=== PATIENT | male | born 1975 | race Caucasian/White ===

== ENCOUNTER 2016-08-29 08:12 | Observation (INO) | payer BC ==
[2016-08-29] MEDS ORDERED: ALBUTEROL 0.083% 2.5 MG/3 ML VIAL.NEB INHALATION ONE (08:35)
[2016-08-29] MEDS ORDERED: TUSSIONEX PENNKINETIC SUSP 5 ML UDC PO SCH ×2 (09:00→21:00)
[2016-08-29] MEDS ORDERED: ACETAMINOPHEN 325 MG TABLET PO ONE (09:20)
[2016-08-29 09:32] LABS: BLOOD UREA NITROGEN 14 mg/dL (9-20); CALCIUM 9.6 mg/dL (8.4-10.2); CHLORIDE 100 mmol/L (98-107); CREATININE 1.3 mg/dL (0.7-1.3); EST GLOMERULAR FILTRATION RATE > 60 mL/min; GLUCOSE 123 mg/dL (70-100); POTASSIUM 4.3 mmol/L (3.5-5.1); SODIUM 136 mmol/L (137-145)
[2016-08-29 09:33] LABS: INFLUENZA A/B INF A & B NEGATIVE; RAPID STREP SCRN CUL IF NEG NEGATIVE
[2016-08-29 09:35] LABS: HEMOGLOBIN 15.6 g/dL (14.0-18.0); LYMPHOCYTES 13.7 % (20.0-40.0); MEAN CELL VOLUME 86.5 fL (80.0-100.0); MEAN CORPUS. HGB CONCENTRATION 35.6 g/dL (32.0-36.0); MEAN CORPUSCULAR HEMOGLOBIN 30.7 pg (29.0-35.0); MEAN PLATELET VOLUME 8.7 fL (7.4-10.4); MONOCYTES 6.6 % (2.0-10.0); MONOCYTES# 0.5 X 10^3uL (0.2-1.0); NEUTROPHILS 79.7 % (54.0-75.0); NEUTROPHILS# 5.4 X 10^3uL (2.6-6.7); PLATELET COUNT 128 X 10^3uL (130-440); RED BLOOD COUNT 5.08 X 10^6uL (4.20-6.10); RED CELL DISTRIBUTION WIDTH 12.3 % (11.5-14.5); WHITE BLOOD COUNT 6.9 X 10^3uL (3.9-10.7)
[2016-08-29 09:41] LABS: URINE RBC NONE SEEN (0-5/hpf)
[2016-08-29 09:49] LABS: URINE APPEARANCE CLEAR; URINE COLOR YELLOW
[2016-08-29 09:50] LABS: URINE AMORPHOUS SEDIMENT UP TO 25%/lpf (Up to 25%); URINE BACTERIA <10 ORGANISMS/hpf (<10/hpf); URINE BILIRUBIN NEGATIVE (NEGATIVE); URINE BLOOD NEGATIVE (NEGATIVE); URINE GLUCOSE NORMAL (NEGATIVE); URINE KETONE 10mg/dL (1+) (NEGATIVE); URINE LEUKOCYTE ESTERASE NEGATIVE (NEGATIVE); URINE MUCUS UP TO 25%/lpf (Up to 25%); URINE NITRITE NEGATIVE (NEGATIVE); URINE PH 5.5 (5-7); URINE PROTEIN 30mg/dL (1+) (NEG - TRACE); URINE SQUAMOUS EPITHELIAL CELL 0-5/hpf (<= 15/hpf); URINE UROBILINOGEN 0.2mg/dL (Normal) (NEG-1mg/dL); URINE WBC 0-4/hpf (0-4/hpf)
[2016-08-29] MEDS ORDERED: METHYLPREDNISOLONE SOD 125 MG/2 ML VIAL ONE (10:05)
[2016-08-29] MEDS ORDERED: IPRATROPIUM/ALBUTEROL 0.5/3 MG 3 ML AMPUL.NEB INHALATION ONE ×2 (10:06→12:47)
[2016-08-29] MEDS ORDERED: HOME MEDICATION LIST NEEDED 1 EA EACH MC ONE (10:11)
[2016-08-29] MEDS ORDERED: FAMOTIDINE 20 MG TABLET PO PRN (10:11)
[2016-08-29] MEDS ORDERED: ACETAMINOPHEN 325 MG TABLET PO PRN (10:11)
[2016-08-29] MEDS ORDERED: NORMAL SALINE 1,000 ML IV SCH (11:00)
--- NOTE | 2016-08-29 11:25 | RADIOLOGY REPORT ---
A limited single portable view of the chest, without prior films for comparison , demonstrates the heart and vessels to be unremarkable. Stringy atelectasis and/or scarring is seen in the right mid lung field and left lung base. The lung shearer are otherwise clear. No infiltrate, fluid or pneumothorax is seen. IMPRESSION: Minimal stringy atelectasis and/or scarring in the right mid lung field and left lung base. MTDD
--- NOTE | 2016-08-29 11:26 | ER PHYSICIAN DOCUMENTATION ---
Physician Documentation [facility] Name:Douglas Santamaria Age:40 yrs Sex:Male :1975 Arrival Date:08/29/2016 Time:08:12 Bed4 Private MD: Liang Whitten Disposition: 08/29/16 10:02 Admit ordered for Ney Aguilar. Preliminary diagnosis are Hypoxia, Bronchitis Acute. - Bed requested for Medical/Surgical. - Condition is Fair. - Problem is new. - Symptoms are unchanged. 23 HR OBS Yes HPI: 08/29 09:56 This 40 yrs old Male presents to ER via Walk In with complaints of Possible sc Kidney Stone, Cough. 09:56 The patient or guardian reports cough, that is constant, with no sputum. Onset: The sc symptom(s)/episode began/occurred 3 day(s) ago. Severity of symptoms: At their worst the symptoms were severe, in the emergency department the symptoms have improved. Modifying factors: The symptoms are alleviated by nothing. Associated signs and symptoms: Pertinent positives: earache, fever, rhinorrhea, sore throat. children in home with similar symptoms last week. Historical: - Allergies: PENICILLINS; - Home Meds: 1. lisinopril 10 mg oral tab 1 tab once daily for Hypertension 2. Mucinex 600 mg oral TbER 1 tab as needed for Cough - PMHx: KIDNEY STONES; HYPERTENSION; - PSHx: SHOULDER SURGERY; LITHOTRIPSY; URETERAL STENTS; - Tetanus: < 10 years. - Ebola Screening: : Patient negative for fever greater than or equal to 101.5 degrees Fahrenheit, and additional compatible Ebola Virus Disease symptoms. Patient denies exposure to infectious person. Patient denies travel to an Ebola-affected area in the 21 days before illness onset. . - Immunization history: Flu Vaccine None. - Social history: Smoking status: Patient states former smoker of tobacco. ROS: 09:58 Eyes: Negative for injury, pain, redness, and discharge. sc Neck: Negative for injury, pain, and swelling. Cardiovascular: Negative for chest pain, palpitations, and edema. Abdomen/GI: Negative for abdominal pain, nausea, vomiting, diarrhea, and constipation. Back: Negative for injury and pain. MS/Extremity: Negative for injury and deformity. Skin: Negative for injury, rash, and discoloration. 09:58 Neuro: Negative for headache, weakness, numbness, tingling, and seizure. sc 09:58 Constitutional: Positive for body aches, chills, fatigue, fever, malaise. 09:58 ENT: Positive for ear pain, sinus congestion, sore throat. 09:58 Respiratory: Positive for cough, with no reported sputum, dyspnea on exertion, shortness of breath, wheezing. Exam: Head/Face: Normocephalic, atraumatic. Eyes: Pupils equal round and reactive to light, extra-ocular motions intact. Lids and lashes normal. Conjunctiva and sclera are non-icteric and not injected. Cornea within normal limits. Periorbital areas with no swelling, redness, or edema. ENT: Nares patent. No nasal discharge, no septal abnormalities noted. Tympanic membranes are normal and external auditory canals are clear. Oropharynx with no redness, swelling, or masses, exudates, or evidence of obstruction, uvula midline. Mucous membranes moist. Neck: Trachea midline, no thyromegaly or masses palpated, and no cervical lymphadenopathy. Supple, full range of motion without nuchal rigidity, or vertebral point tenderness. No meningismus. Chest/axilla: Normal chest wall appearance and motion. Nontender with no deformity. No lesions are appreciated. Cardiovascular: Regular rate and rhythm with a normal S1 and S2. No gallops, murmurs, or rubs. Normal PMI, no JVD. No pulse deficits. Abdomen/GI: Soft, non-tender, with normal bowel sounds. No distension or tympany. No guarding or rebound. No evidence of tenderness throughout. Back: No spinal tenderness. No costovertebral tenderness. Full range of motion. Skin: Warm, dry with normal turgor. Normal color with no rashes, no lesions, and no evidence of cellulitis. 09:59 Neuro: Awake and alert, GCS 15, oriented to person, place, time, and situation. hi Cranial nerves II-XII grossly intact. Motor strength 5/5 in all extremities. Sensory grossly intact. Cerebellar exam normal. Normal gait. 09:59 Constitutional: The patient appears alert, awake, lethargic. 09:59 Respiratory: mild respiratory distress is noted, Respirations: tachypnea, that is mild, Breath sounds: wheezing, that is mild, is heard diffusely. 10:03 Neuro: Orientation: is normal. hi Vital Signs: 08:30 BP 141 / 87; Pulse 102; Resp 20; Temp 99.6(O); Pulse Ox 82% on R/A; Weight 95.71 kg; lp Height 5 ft. 11 in. (180.34 cm); 09:14 BP 131 / 89; Pulse 108; Resp 20; Pulse Ox 93% on 2 lpm NC; lp 10:33 BP 106 / 70; Pulse 106; Resp 20; Pulse Ox 90% on 2 lpm NC; lp 08:30 Body Mass Index 29.43 (95.71 kg, 180.34 cm) lp MDM: 08:57 Patient medically screened. hi 10:01 Differential Diagnosis: Bronchitis Influenza Upper Respiratory Infection Pharyngitis sc Viral Syndrome. Data reviewed: vital signs, nurses notes, lab test result(s), radiologic studies, and as a result, I will admit patient. Counseling: I had a detailed discussion with the patient and/or guardian regarding: the historical points, exam findings, and any diagnostic results supporting the discharge/admit diagnosis, lab results, radiology results, the need for further work-up and treatment in the hospital. 08/29 09:33 Order name: BASIC METABOLIC PANEL; Complete Time: 09:47 EDMS 08/29 09:46 Interpretation: Normal. hi 08/29 09:34 Order name: INFLUENZA A/B; Complete Time: 09:47 EDMS 08/29 09:46 Interpretation: Normal. hi 08/29 09:34 Order name: RAPID STREP SCRN CUL IF NEG; Complete Time: 09:47 EDWY 08/29 09:47 Interpretation: Normal. hi 08/29 09:36 Order name: CBC AUTO DIF, MDIF/RMOR IF IND; Complete Time: 09:47 EDWY 08/29 09:47 Interpretation: Normal. hi 08/29 09:51 Order name: UA W/ MICRO -CULTURE IF IND; Complete Time: 10:02 EDWY 08/29 10:02 Interpretation: Normal Except: URINE PROTEIN 30mg/dL (1+); URINE KETONE 10mg/dL (1+). hi 08/29 08:36 Order name: I & O; Complete Time: 09:08 08/29 08:36 Order name: Oxygen; Complete Time: 09:08 08/29 08:36 Order name: Place Patient On Monitor; Complete Time: : lp 08/29 08:36 Order name: Pulse Ox Continuous; Complete Time: : lp 08/29 08:57 Order name: Urine Dip; Complete Time: : sc Dispensed Medications: 08:45 Drug: Albuterol 2.5 mg; Route: Inhalation; lp 09:45 Follow up: Response: Wheezing unchanged lp 09:15 Drug: Tylenol 975 mg; Route: PO; lp 10:15 Follow up: Response: Pain is decreased lp 10:07 Drug: Solu-MEDROL 125 mg; Route: IVP; Site: left antecubital; lp 10:28 Follow up: Response: No adverse reaction; No change in condition lp 10:07 Drug: DuoNeb (Albuterol 2.5 mg, Atrovent 0.5 mg); 3 ml; Route: Nebulizer; lp 10:29 Follow up: Response: No adverse reaction; Marked relief of symptoms lp 10:24 Drug: Tussionex - HYDROcodone-Homatropine Liquid 5ml 5 ml; Route: PO; lp 10:40 Follow up: Response: No adverse reaction; No change in condition lp Point of Care Testing: Urine Dip: : pH: 5.5; ; Specific [place]: 1.020; Ketones: Small; Glucose: Negative; Protein: lp Positive (+); Leukocytes: Negative; Nitrite: Negative ; Blood: Negative; Bilirubin: Negative ; Urobilinogen: Normal Signatures: Emma Mir RN RN Liang Brower MD MD hi
--- NOTE | 2016-08-29 11:26 | ER NURSING DOCUMENTATION ---
Nurse's Notes [facility] Name:Douglas Santamaria Age:40 yrs Sex:Male :1975 Arrival Date:08/29/2016 Time:08:12 Bed4 Private MD: Diagnosis:Hypoxia;Bronchitis Acute Presentation: 08/29 08:15 Acuity: KRISTOPHER 3 rh 08:29 Presenting complaint: Patient states: Cough and SOB since Friday. Transition of care: lp Home. 08:29 Method Of Arrival: Walk In lp Triage Assessment: 09:08 General: Appears uncomfortable, Behavior is appropriate for age. Pain: Complains of lp pain in forehead, right synagogue and left synagogue. EENT: Tympanic membrane reddened on left ear and right ear Nares with drainage noted Throat is reddened has enlarged tonsils on left. Neuro: Level of Consciousness is awake, alert, Oriented to person, place, time, event, [place] are equal bilaterally Moves all extremities. Speech is normal. Cardiovascular: Heart tones S1 S2. Respiratory: Airway is patent Respiratory effort is even, unlabored, Respiratory pattern is regular, symmetrical, Breath sounds are diminished bilaterally. Reports shortness of breath cough that is productive, hacking, persistent pain with cough Onset: The symptoms/episode began/occurred Since Friday. GI: Abdomen is flat, non- distended Bowel sounds present X 4 quads. : Reports pain in bilateral flank(s). Derm: Skin is intact, is healthy with good turgor, Skin is pink, warm & dry. Skin temperature is warm. Musculoskeletal: No deficits noted. Historical: - Allergies: PENICILLINS; - Home Meds: 1. lisinopril 10 mg oral tab 1 tab once daily for Hypertension 2. Mucinex 600 mg oral TbER 1 tab as needed for Cough - PMHx: KIDNEY STONES; HYPERTENSION; - PSHx: SHOULDER SURGERY; LITHOTRIPSY; URETERAL STENTS; - Tetanus: < 10 years. - Ebola Screening: : Patient negative for fever greater than or equal to 101.5 degrees Fahrenheit, and additional compatible Ebola Virus Disease symptoms. Patient denies exposure to infectious person. Patient denies travel to an Ebola-affected area in the 21 days before illness onset. . - Immunization history: Flu Vaccine None. - Social history: Smoking status: Patient states former smoker of tobacco. Screenin:14 Infectious Disease Risk None. Abuse screen: Denies threats or abuse. Denies injuries lp from another. Nutritional screening: No deficits noted. Assessment: 09:13 See Triage Assessment done by same RN. Cardiovascular: Heart tones S1 S2. lp Cardiovascular: Heart tones S1 S2. Respiratory: Airway is patent Respiratory effort is even, unlabored, Respiratory pattern is regular, symmetrical, Reports cough that is productive, hacking, persistent pain with cough. 10:35 Cardiovascular: Rhythm is sinus tachycardia. lp Vital Signs: 08:30 BP 141 / 87; Pulse 102; Resp 20; Temp 99.6(O); Pulse Ox 82% on R/A; Weight 95.71 kg; lp Height 5 ft. 11 in. (180.34 cm); 09:14 BP 131 / 89; Pulse 108; Resp 20; Pulse Ox 93% on 2 lpm NC; lp 10:33 BP 106 / 70; Pulse 106; Resp 20; Pulse Ox 90% on 2 lpm NC; lp 08:30 Body Mass Index 29.43 (95.71 kg, 180.34 cm) lp Vitals: 09:55 Peak flow readin liters/min. lp 10:30 Peak flow readin liters/min. lp ED Course: 08:13 Patient arrived in ED. lm3 08:15 Triage completed. rh 08:29 Emma Mir, AVI is Primary Nurse. lp 08:30 Inserted peripheral IV: 20 gauge in left antecubital area. lp 08:40 Liang Brower MD is Attending Physician. sc 08:46 Port Xray Completed. hz 08:55 court monitor on. Pulse ox on. NIBP on. lp 09:14 Valuables Remains with patient Patient has correct armband on for positive lp identification. Placed in gown. Bed in low position. Call light in reach. Side rails up X 1. 10:01 Ney Aguilar MD is Admitting Physician. sc 10:31 Peak flow 275 prior to duoneb. Peak flow after Duoneb 325. lp Administered Medications: 08:45 Drug: Albuterol 2.5 mg; Route: Inhalation; lp 09:45 Follow up: Response: Wheezing unchanged lp 09:15 Drug: Tylenol 975 mg; Route: PO; lp 10:15 Follow up: Response: Pain is decreased lp 10:07 Drug: Solu-MEDROL 125 mg; Route: IVP; Site: left antecubital; lp 10:28 Follow up: Response: No adverse reaction; No change in condition lp 10:07 Drug: DuoNeb (Albuterol 2.5 mg, Atrovent 0.5 mg); 3 ml; Route: Nebulizer; lp 10:29 Follow up: Response: No adverse reaction; Marked relief of symptoms lp 10:24 Drug: Tussionex - HYDROcodone-Homatropine Liquid 5ml 5 ml; Route: PO; lp 10:40 Follow up: Response: No adverse reaction; No change in condition lp Point of Care Testing: Urine Dip: 09:29 pH: 5.5; ; Specific [place]: 1.020; Ketones: Small; Glucose: Negative; Protein: lp Positive (+); Leukocytes: Negative; Nitrite: Negative ; Blood: Negative; Bilirubin: Negative ; Urobilinogen: Normal Outcome: 10:02 Decision to Admit by Provider. mo 10:32 Condition: stable lp 10:32 Instructed on need to admit 11:24 Admitted to Med/surg accompanied by nurse. lp 11:25 Patient left the ED. lp Signatures: Emma Mir RN RN Liang Burgess MD MD mo Tonya Tanner Sherice Santos Magy Couch [facility]
[2016-08-29] MEDS ORDERED: [UNRECOGNIZED DRUG - OTHER] IM ONE ×2 (12:16→13:28)
[2016-08-29] MEDS ORDERED: AZITHROMYCIN 250 MG TABLET PO SCH (12:30)
[2016-08-29] MEDS ORDERED: O2 HUMIDIFIER 650 ML BOTTLE INHALATION ONE (12:32)
[2016-08-29] MEDS ORDERED: NORMAL SALINE IV SCH (13:00)
[2016-08-29] MEDS ORDERED: SODIUM BICARB IV SCH ×2 (13:00→14:00)
[2016-08-29] MEDS ORDERED: SODIUM CHLORIDE 0.45 % 1,000 ML IV SCH (13:00)
[2016-08-29] MEDS: OSELTAMIVIR PHOSPHATE 75 MG CAPSULE PO SCH ×2 (13:20→21:58)
[2016-08-29] MEDS: GUAIFENESIN ER 600 MG TABLET PO SCH ×2 (13:22→21:58)
[2016-08-29] MEDS ORDERED: SODIUM CHLORIDE 0.45% IV SCH (14:00)
[2016-08-29] MEDS ORDERED: TUSSIONEX PENNKINETIC SUSP 5 ML UDC ONE (16:02)
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
[2016-08-29] MEDS: IPRATROPIUM/ALBUTEROL 0.5/3 MG 3 ML AMPUL.NEB INHALATION SCH ×2 (16:22→21:56)
[2016-08-29] MEDS: METHYLPREDNISOLONE SOD 125 MG/2 ML VIAL IV SCH ×2 (16:28→21:56)
[2016-08-29] MEDS: TUSSIONEX PENNKINETIC SUSP 5 ML UDC PO SCH (16:29)
[2016-08-29 17:19] VITALS: RESP 20; O2SAT 90
[2016-08-29] MEDS ORDERED: ENALAPRILAT DIHYDRATE 1.25 MG/ML VIAL IV PRN (19:31)
[2016-08-29] MEDS: LISINOPRIL 10 MG TABLET PO SCH (19:31)
[2016-08-29] MEDS ORDERED: ROSUVASTATIN CALCIUM 20 MG TABLET PO SCH (21:00)
[2016-08-29] MEDS: BENZOCAINE/MENTHOL 1 EACH LOZENGE PO PRN (21:58)
[2016-08-30 00:53] VITALS: BP 140/80; TEMP 98.2
[2016-08-30 03:02] VITALS: PULSE 71
[2016-08-30] MEDS: METHYLPREDNISOLONE SOD 125 MG/2 ML VIAL IV SCH ×2 (03:15→10:09)
[2016-08-30] MEDS: IPRATROPIUM/ALBUTEROL 0.5/3 MG 3 ML AMPUL.NEB INHALATION SCH ×2 (03:15→10:26)
[2016-08-30] MEDS: TUSSIONEX PENNKINETIC SUSP 5 ML UDC PO SCH (06:09)
--- NOTE | 2016-08-30 08:29 | PROGRESS NOTE: IM APSO ---
Assessment and Plan - Date of Encounter Date of Encounter: 08/30/16 (1) Hypoxia Status: Acute Assessment and plan: likely bronchiolitis related with RAD/clinical finding, steroids/inhalers, and azithromycin/tamiflu (influenza eia negative but clinical picture consistent) Current Visit: Yes (2) Reactive airway disease with acute exacerbation Status: Acute Assessment and plan: related to infection, will DC, heading to lower elevation Current Visit: Yes (3) Recurrent nephrolithiasis Status: Chronic Assessment and plan: suspect uric acid, elevated serum uric acid, urine uric acid/creatinine pending. Shoudl have 24 hour urine studies in future and consider nephrology referral. May benefit from citrate and uloric as well recommend changing lisinopril which provokes gout to losartan that is a uricosolytic Current Visit: Yes (4) Hypertension Status: Chronic Current Visit: Yes (5) Dyslipidemia Status: Acute Current Visit: Yes (6) Gout Status: Suspected Current Visit: Yes - Time Spent With Patient Total time spent with greater than 50% in coordination of care (as documented) at patient's floor/unit and/or counseling patient: Greater than 35 minutes IM: PN Subjective General: good appetite, no fatigue, no confusion, no pain, no fever, no chills Cardiovascular: no chest pain, no chest pressure, no palpitations Respiratory: cough (more loose, no PND/orthopnea, slept well w/ tussionex) Gastrointestinal: no abdominal pain, no nausea, no vomiting Musculoskeletal: no pain (He feels much better, notes oxygen drops a bit but is driving (girlfriend is driving) them back to [facility] today. He will hot die picker meds at [facility] in [facility]) IM: PN Objective Exam - I&O/Vital Signs I&O: Intake & Output 08/29/16 08/30/16 08/30/16 21:59 05:59 13:59 Intake Total 1514 2000 Output Total 1275 1500 Balance 239 500 Weight 97.522 kg 97.522 kg Intake: IV 664 1500 Left Hand 664 1500 Oral 850 500 Output: Urine 1275 1500 Other: Urine Appearance Clear Clear Urine Color Yellow Yellow Voiding Method Urinal Urinal Vital Signs: Last Vital Signs Temp 36.8 C 08/30/16 03:00 Pulse 71 08/30/16 03:00 Resp 20 08/30/16 03:00 BP 140/80 08/29/16 23:00 Pulse Ox 90 08/30/16 03:00 Oxygen Flow Rate 2 Oxygen Delivery Method Nasal Cannula - Constitutional General appearance: Present: obese - Head Head exam: Present: atraumatic - Eye Eye exam: Present: EOMI. Absent: conjunctival injection - ENT ENT exam: Present: mucous membranes moist - Neck Neck exam: Present: full ROM. Absent: lymphadenopathy - Respiratory Respiratory exam: Present: rhonchi, wheezes (air movement markedly improved, exp phase improved, ronchi at bases w/ polyphonic wheezes). Absent: accessory muscle use - Cardiovascular Cardiovascular exam: Present: RRR - GI/Abdominal GI/Abdominal exam: Present: normal bowel sounds, soft. Absent: tenderness - Extremities Exam Extremities exam: Absent: calf tenderness, edema - Allied Health Notes Allied health notes reviewed: nursing - Lab Labs: Laboratory Last Values WBC 6.9 X 10^3uL (3.9-10.7) 08/29/16 09:10 RBC 5.08 X 10^6uL (4.20-6.10) 08/29/16 09:10 Hgb 15.6 g/dL (14.0-18.0) 08/29/16 09:10 Hct 44.0 % (42.0-54.0) 08/29/16 09:10 MCV 86.5 fL (80.0-100.0) 08/29/16 09:10 MCH 30.7 pg (29.0-35.0) 08/29/16 09:10 MCHC 35.6 g/dL (32.0-36.0) 08/29/16 09:10 RDW 12.3 % (11.5-14.5) 08/29/16 09:10 Plt Count 128 X 10^3uL (130-440) L 08/29/16 09:10 MPV 8.7 fL (7.4-10.4) 08/29/16 09:10 Neutrophils % 79.7 % (54.0-75.0) H 08/29/16 09:10 Lymphocytes % 13.7 % (20.0-40.0) L 08/29/16 09:10 Eosinophils % 0.0 % (0.0-6.0) 08/29/16 09:10 Basophils % 0.0 % (0.0-2.0) 08/29/16 09:10 Neutrophils # 5.4 X 10^3uL (2.6-6.7) 08/29/16 09:10 Lymphocytes # 1.0 X 10^3uL (0.8-3.8) 08/29/16 09:10 Monocytes 6.6 % (2.0-10.0) 08/29/16 09:10 Monocytes # 0.5 X 10^3uL (0.2-1.0) 08/29/16 09:10 Eosinophils # 0.0 X 10^3uL (0.0-0.4) 08/29/16 09:10 Basophils # 0.0 X 10^3uL (0.0-0.1) 08/29/16 09:10 Sodium 136 mmol/L (137-145) L 08/29/16 09:10 Potassium 4.3 mmol/L (3.5-5.1) 08/29/16 09:10 Chloride 100 mmol/L (98-107) 08/29/16 09:10 Carbon Dioxide 25 mmol/L (22-30) 08/29/16 09:10 BUN 14 mg/dL (9-20) 08/29/16 09:10 Creatinine 1.3 mg/dL (0.7-1.3) 08/29/16 09:10 GFR Calculation > 60 mL/min 08/29/16 09:10 Glucose 123 mg/dL (70-100) H 08/29/16 09:10 Uric Acid 6.7 mg/dL (3.5-8.5) 08/29/16 12:14 Calcium 9.6 mg/dL (8.4-10.2) 08/29/16 09:10 Urine Color Yellow 08/29/16 09:35 Urine Appearance Clear 08/29/16 09:35 Urine pH 5.5 (5-7) 08/29/16 09:35 Ur Specific [place] 1.020 (0.001-1.035) 08/29/16 09:35 Urine Protein 30mg/dl (1+) (NEG - TRACE) A 08/29/16 09:35 Urine Ketones 10mg/dl (1+) (NEGATIVE) A 08/29/16 09:35 Urine Blood Negative (NEGATIVE) 08/29/16 09:35 Urine Nitrate Negative (NEGATIVE) 08/29/16 09:35 Urine Bilirubin Negative (NEGATIVE) 08/29/16 09:35 Urine Urobilinogen 0.2mg/dl (normal) (NEG-1mg/dL) 08/29/16 09:35 Ur Leukocyte Esterase Negative (NEGATIVE) 08/29/16 09:35 Urine RBC None seen (0-5/hpf) 08/29/16 09:35 Urine WBC 0-4/hpf (0-4/hpf) 08/29/16 09:35 Ur Squamous Epith Cells 0-5/hpf (<= 15/hpf) 08/29/16 09:35 Amorphous Sediment Up to 25%/lpf (Up to 25%) 08/29/16 09:35 Urine Bacteria <10 organisms/hpf (<10/hpf) 08/29/16 09:35 Urine Mucus Up to 25%/lpf (Up to 25%) 08/29/16 09:35 Urine Creatinine 71.1 mg/dL 08/29/16 12:14 Ur Uric Acid 24 Hr Cancelled 08/29/16 12:14 Urine Glucose Normal (NEGATIVE) 08/29/16 09:35 Influenza Types A,B Ag Inf a & b negative 08/29/16 09:10 Group A Strep Rapid Negative 08/29/16 09:10 Quality Questions - VTE Prophylaxis Assessment VTE Present on Admission?: No Patient at risk for venous thromboembolism?: Yes VTE Risk Level: Very Low Risk VTE Medical Contraindication: not indicated
--- NOTE | 2016-08-30 08:42 | DC SUMMARY: IM Note ---
Discharge Summary: IM/Peds Provider: Date of Admission: 08/29/16 Admitting Provider: CAROLE MONTEMAYOR Attending Provider: CAROLE MONTEMAYOR Discharging Provider: CAROLE MONTEMAYOR Primary Care Provider: Discharge Date: 08/30/16 - Diagnosis (1) Hypoxia Status: Acute (2) Reactive airway disease with acute exacerbation Status: Acute (3) Recurrent nephrolithiasis Status: Chronic (4) Hypertension Status: Chronic (5) Dyslipidemia Status: Acute (6) Gout Status: Suspected - Time Spent with Patient Total time spent providing and/or coordinating discharge services: Discharge - Patient/Caregiver Discharge Instructions Activity Level: as tolerated, do not drive while taking cough medications Diet: cardiac prudent, recommend plant based and limited purines Additional Instructions: Please f/u with Dr. Leiva, consider losartan instead of lisinopril, nephrology work up for uric acid stones and possible 24 hour urine studies. Overall discharge status: patient is progressing back to baseline Home Medications: Benzocaine/Menthol [Cepacol Sorethroat-Cough Holly*] 1 each PO PRN PRN #30 lozenge PRN Reason: Sore Throat Oseltamivir Phosphate [Tamiflu*] 75 mg PO BID #9 capsule Tussionex Pennkinetic Susp [Tussionex Pennkinetic Susp*] 5 ml PO Q12H #120 ml Azithromycin [Zithromax*] 250 mg PO DAILY #4 tablet Disposition: HOME, SELF-CARE Discharge Summary Data - Medication History Medication History: Home Medications Lisinopril [Prinivil*] 10 mg PO DAILY 08/29/16 Multivitamins,Therapeutic [Thera Multivitamin*] 1 tab PO DAILY 08/29/16 Basin-3S/Dha/Epa/Fish Oil [Fish Oil 1,200 mg Softgel] 2 cap PO DAILY 08/29/16 Rosuvastatin Calcium [Crestor] 10 mg PO DAILY 08/29/16 buPROPion XL DAILY [Wellbutrin Xl Daily*] 300 mg PO DAILY 08/29/16 Inpatient Medications 08/29/16 12:15 Oseltamivir Phosphate [Tamiflu] 75 mg PO BID 08/29/16 14:00 Sodium Bicarb 8.4% [Sodium Bicarbonate] 50 meq Sodium Chloride 0.45 % [1/2 Normal Saline 1000 ml] 1,000 ml IV CONT 08/29/16 17:00 Benzocaine/Menthol [Cepacol Sorethroat Lozenges] 1 each PO PRN PRN Tussionex Pennkinetic Susp 5 ml PO Q12H 08/29/16 19:00 Lisinopril [Prinivil] 10 mg PO DAILY 08/29/16 19:31 Enalaprilat Dihydrate [Vasotec] 0.625 mg IV Q6H PRN 08/29/16 21:00 Rosuvastatin Calcium [Crestor] 5 mg PO HS 08/30/16 09:00 Azithromycin [Zithromax] 250 mg PO DAILY buPROPion XL DAILY [Wellbutrin Xl Daily] 300 mg PO DAILY Procedures and tests throughout hospitalization: Completed Lab Orders 08/29/16 12:14 URIC ACID [CHEM] Routine URINE CREATININE,RANDOM [CHEM] Routine Pending Orders 08/29/16 12:00 GENERIC ORDERABLE [SEND] Routine 08/29/16 12:15 MISCELLANEOUS LAB TEST [MULTI] Routine Oseltamivir Phosphate [Tamiflu] 75 mg PO BID 08/29/16 14:00 Sodium Bicarb 8.4% [Sodium Bicarbonate] 50 meq Sodium Chloride 0.45 % [1/2 Normal Saline 1000 ml] 1,000 ml IV CONT 08/29/16 17:00 Benzocaine/Menthol [Cepacol Sorethroat Lozenges] 1 each PO PRN PRN Tussionex Pennkinetic Susp 5 ml PO Q12H 08/29/16 19:00 Lisinopril [Prinivil] 10 mg PO DAILY 08/29/16 19:31 Enalaprilat Dihydrate [Vasotec] 0.625 mg IV Q6H PRN 08/29/16 21:00 Rosuvastatin Calcium [Crestor] 5 mg PO HS 08/30/16 09:00 Azithromycin [Zithromax] 250 mg PO DAILY buPROPion XL DAILY [Wellbutrin Xl Daily] 300 mg PO DAILY Labs on day of discharge: Labs from last 24 hours 08/29/16 08/29/16 08/29/16 12:14 12:14 12:00 Uric Acid 6.7 Urine Creatinine 71.1 Ur Uric Acid 24 Hr Cancelled Ref Lab Test Result Pending - Impressions 40 yo male with metabolic syndrome? HTN/dyslipidemia and probable gout with recurrent nephrolithiasis admitted with bromchiolitis picture/lkely influenza. Improving though hypoxic is heading to lower elevation today. DC with steroids/ inhalers/azithromycin/tamilfu, fecommend changing lisinoprl to losartan. uric acid/creatinine ration pending but serum uric acid elevated. IM: Discharge Physical Exam - I&O/Vital Signs I&O: Intake & Output 08/29/16 08/30/16 08/30/16 21:59 05:59 13:59 Intake Total 1514 2000 Output Total 1275 1500 Balance 239 500 Weight 97.522 kg 97.522 kg Intake: IV 664 1500 Left Hand 664 1500 Oral 850 500 Output: Urine 1275 1500 Other: Urine Appearance Clear Clear Urine Color Yellow Yellow Voiding Method Urinal Urinal Vital Signs: Last Vital Signs Temp 36.8 C 08/30/16 03:00 Pulse 71 08/30/16 03:00 Resp 20 08/30/16 03:00 BP 140/80 08/29/16 23:00 Pulse Ox 90 08/30/16 03:00 Oxygen Flow Rate 2 Oxygen Delivery Method Nasal Cannula - Constitutional General appearance: Present: obese - Head Head exam: Present: atraumatic - Eye Eye exam: Present: EOMI. Absent: conjunctival injection - ENT ENT exam: Present: mucous membranes moist - Neck Neck exam: Present: full ROM. Absent: lymphadenopathy - Respiratory Respiratory exam: Present: rhonchi, wheezes (air movement markedly improved, exp phase improved, ronchi at bases w/ polyphonic wheezes). Absent: accessory muscle use - Cardiovascular Cardiovascular exam: Present: RRR - GI/Abdominal GI/Abdominal exam: Present: normal bowel sounds, soft. Absent: tenderness - Extremities Exam Extremities exam: Absent: calf tenderness, edema - Allied Health Notes Allied health notes reviewed: nursing
[2016-08-30] MEDS: GUAIFENESIN ER 600 MG TABLET PO SCH (08:54)
[2016-08-30] MEDS: LISINOPRIL 10 MG TABLET PO SCH (08:54)
[2016-08-30] MEDS: OSELTAMIVIR PHOSPHATE 75 MG CAPSULE PO SCH (08:54)
[2016-08-30] MEDS: BENZOCAINE/MENTHOL 1 EACH LOZENGE PO PRN (08:58)
[2016-08-30] MEDS ORDERED: LISINOPRIL 10 MG TABLET PO SCH (09:00)
[2016-08-30] MEDS ORDERED: AZITHROMYCIN 250 MG TABLET PO SCH (09:00)
[2016-08-30] MEDS ORDERED: buPROPion XL DAILY 150 MG TABLET PO SCH (09:00)
== END 2016-08-30 08:43 | disposition home or self-care (01) ==
LOC: ER 08:12 → IN 10:58
PROVIDERS: ADMIT Hospitalist; ATTEND Hospitalist
DX: J20.9 Acute bronchitis, unspecified (principal); N20.0 Calculus of kidney; I10 Essential (primary) hypertension; E78.5 Hyperlipidemia, unspecified; M10.9 Gout, unspecified; F41.9 Anxiety disorder, unspecified; Z79.899 Other long term (current) drug therapy
CPT/HCPCS: 36415; 71010; 80048; 81001; 82570; 84550; 84560; 85025; 86403; 87040; 87449; 94640; 94664; 96365; 96366; 96372; 96374; 96376; 99285; E0555; G0378; J2930; J7613; J7620; Q0144